=== PATIENT | male | born 1955 | race Caucasian/White ===

== ENCOUNTER 2024-04-08 12:18 | Emergency (ER) | payer MEDICARE ==
[~2024-04-08] VITALS: Ht 188 cm; Wt 104.3 kg
[2024-04-08] MEDS: HYDROcodone/APAP 5/325 1 TAB TABLET PO STA (13:32)
--- NOTE | 2024-04-08 13:51 | ERN ---
ED Note History of Present Illness Stated Complaint: SWOLLEN LEFT ANKLE Chief Complaint: Ankle Problem Time Seen by MD: 12:20 Time Seen by Midlevel: 12:25 Dictation: 68-year-old male coming in with complaints of left ankle pain. Patient states on Saturday he rolled it in his having pain and swelling since then. Patient is came in ambulating on crutches states he has also has been using ice for swelling and his family members urgency come get it evaluated. Allergies: Coded Allergies: Penicillins (Unverified Allergy, Unknown, RASH, 04/08/24) Past Medical History Past Medical History: High Cholesterol, Hypertension Surgical History: None Review of System Dictation Constitutional: Negative for fever,chills, and weight loss Eyes: Negative for injury, pain,redness, and discharge ENT: Negative for injury,pain or swelling Cardiovascular: Negative for chest pain, palpitations, and edema Respiratory: Negative for shortness of breath, cough, and wheezing, Abdomen/GI: Negative for abdominal pain, nausea, vomiting, diarrhea, and constipation Back: Negative for injury and pain : Negative for injury, bleeding and discharge MS/Extremity: complaining of left ankle pain Skin: Negative for rash, and discoloration Neuro: Negative for headache, weakness, numbness, tingling, and seizure Psych: Negative for suicide ideation, homicidal ideation, and hallucinations Review of Systems: was completed Initial Vital Sign VS Vital Signs Date Time Temp Pulse Resp B/P (MAP) Pulse Ox O2 Delivery O2 Flow Rate FiO2 04/08/24 12:24 97.0 86 20 158/88 98 Room Air 04/08/24 14:10 0 21 Physical Exam Dictation General: awake, alert, NAD Head/Face: Normocephalic, atraumatic Eyes: PERRL, EOMI, vision at baseline ENT: oral cavity clear, TMs clear, no signs of infection Neck: Trachea midline, supple, no nuchal rigidity Cardiovascular: RRR, normal S1/S2, No MRGs, no JVD Respiratory: CTAB, no respiratory distress, No rales or wheezes Abdomen: Soft, non-tender, non-distended, normal bowel sounds, no guarding or rebound. Skin: Warm, dry, normal turgor, no rash MS/Extremity: Pulses equal, no cyanosis, neurovascular intact, limited ROM to left ankle due to pain. There is swelling noted and bruising. Pedal pulses intact. Capillary seconds. Denies any numbness or tingling. Neuro: COAx4, GCS 15, strength 5/5, CN 2-12 intact, normal cerebellar exam, normal gait, Psych: Normal behavior, mood, and affect normal ED Course ED Course Orders Procedure Category Date Status Time Ankle 2vws Lt RAD 04/08/24 Resulted 12:30 Hydrocodone/Apap PHA 04/08/24 Complete 5/325 ([place] 5/325mg) 12:30 Posterior Ankle Splint [email or web address] 04/08/24 Complete 14:04 Crutches W/Training CPOE 04/08/24 Transmitted (Er) 14:04 Current Medications Medications (Trade) Dose Ordered Sig/Marie Route PRN Reason Start Time Stop Time Status Last Admin Dose Admin Acetaminophen/ Hydrocodone Bitart (NORco 5/325MG) 1 tab ONCE STAT PO 04/08/24 12:30 04/08/24 12:31 DC 04/08/24 13:32 Vital Signs Date Time Temp Pulse Resp B/P (MAP) Pulse Ox O2 Delivery O2 Flow Rate FiO2 04/08/24 14:10 97.9 86 20 147/85 98 Room Air* 0 21 04/08/24 12:24 97.0 86 20 158/88 98 Room Air Medical Decision Making MDM MDM: 68-year-old male coming in with complaints of left ankle pain. Patient states on Saturday he rolled it in his having pain and swelling since then. Patient is came in ambulating on crutches states he has also has been using ice for swelling and his family members urged him come get it evaluated. X-ray shows a fibula fracture, interpreted by me. Patient is placed in a short posterior splint in educated to use crutches until seen by orthopedic surgeon. Educated patient to continue to elevate and ice as needed. Take Tylenol or Motrin [id number]. Patient verbalized understanding, answered all questions. Differential diagnosis: Tib-fib fracture, ankle sprain, ankle contusion Rationale: Tests considered and ordered secondary to shared decision making include: Previous outside records reviewed: Old ER visits. Risk of complication and/or morbidity or mortality of patient management: None Medications-Per medication reconciliation Need for hospitalization: Patient does not meet criteria for hospitalization. Need for emergency major/minor surgery: No There are no social concerns with this patient. Prescription drug management Prescriptions will include symptomatic care Patient's prior external medical records from other ER visits were reviewed by me as indicated. Prior testing and results from previous visits were reviewed. Prior tests were taken into account with medical decision making and resource utilization, independent historian/historians were used to obtain complete medical history. I independently interpreted the test that were performed, results were reviewed by me and considered findings on radiology if ordered. Medical management and examination interpretation discussions were had by me with other qualified healthcare professionals as indicated for the patient's care. DX & DISP Disposition: Discharge Departure Impression: Primary Impression: Fibula fracture Condition: Stable Additional Instructions: Continue using crutches, do not bear weight on that ankle. Go see the orthopedic surgeon in 1-2 days. You can take [id number] Tylenol, Motrin for pain control. Elevate and ice as needed. Return to the emergency room if you start to develop any numbness or tingling to the extremity Referrals: SELF,REFERRAL (PCP) JAZMYN IZQUIERDO MD Time of Disposition: 14:07 I have reviewed the case, and I agree with, Diagnosis and Plan GIANNA PINEDA NP Apr 08, 2024 13:51 SHEA FUENTES DO Apr 10, 2024 07:26
--- NOTE | 2024-04-08 14:03 | HMCIMG ---
ANKLE 2VWS LT REASON: pain/trauma TECHNIQUE: 3 views were obtained. FINDINGS: There is a spiral fracture of the distal fibular metaphysis, nondisplaced. There is overlying soft tissue swelling. Ankle mortise appears preserved. Tibia and anterior talus appears intact. There is a heel spur, the calcaneus is otherwise unremarkable. IMPRESSION: 1. Spiral fracture of the left distal fibular metaphysis with associated soft tissue swelling.
[2024-04-08 14:10] VITALS: BP 147/85; PULSE 86; RESP 20; TEMP 97.9; O2SAT 98
== END 2024-04-08 14:32 | disposition home or self-care (01) ==
LOC: EDH 12:18
DX: S82.442A Displaced spiral fracture of shaft of left fibula, initial encounter for closed fracture (principal); E78.00 Pure hypercholesterolemia, unspecified; I10 Essential (primary) hypertension; Z88.0 Allergy status to penicillin; X58.XXXA Exposure to other specified factors, initial encounter; Y93.89 Activity, other specified; Y92.89 Other specified places as the place of occurrence of the external cause; Y99.8 Other external cause status
CPT/HCPCS: 73600; 99283

== ENCOUNTER 2024-04-22 13:37 | Emergency (ER) | payer MEDICARE ==
[~2024-04-22] VITALS: Ht 188 cm; Wt 104.3 kg
--- NOTE | 2024-04-22 14:56 | ERN ---
ED Note History of Present Illness Stated Complaint: LT ANKLE PAIN Chief Complaint: Ankle Problem Time Seen by MD: 13:42 Time Seen by Midlevel: 13:45 Dictation: 68-YEAR-OLD MALE COMING IN FOR LEFT ANKLE PAIN. PATIENT STATES HE WAS HERE COUPLE WEEKS AGO WAS DIAGNOSED WITH A LEFT ANKLE FRACTURE, HAS NOT BEEN ABLE TO SEE AN ORTHOPEDIC SO HE IS SENT HIS MEDICAL RECORDS SO HIS PCP BACK HOME, STATES THAT THE HIS PCP RECOMMENDED A FOLLOW UP X-RAY TO SEE IF THE FRACTURE IS HEALING CORRECTLY. PATIENT STATES HE HAS BEEN WEARING A BOOT ON HIS LEFT ANKLE SINCE HE WAS DISCHARGED FROM THIS FACILITY. DENIES ANY RECENT TRAUMAS. AND STATES HE IS ACTUALLY FEELING BETTER EVERY DAY. Allergies: Coded Allergies: Penicillins (Unverified Allergy, Unknown, RASH, 04/08/24) Past Medical History Past Medical History: High Cholesterol, Hypertension Surgical History: None Review of System Dictation CONSTITUTIONAL: NEGATIVE FOR FEVER,CHILLS, AND WEIGHT LOSS EYES: NEGATIVE FOR INJURY, PAIN,REDNESS, AND DISCHARGE ENT: NEGATIVE FOR INJURY,PAIN OR SWELLING CARDIOVASCULAR: NEGATIVE FOR CHEST PAIN, PALPITATIONS, AND EDEMA RESPIRATORY: NEGATIVE FOR SHORTNESS OF BREATH, COUGH, AND WHEEZING, ABDOMEN/GI: NEGATIVE FOR ABDOMINAL PAIN, NAUSEA, VOMITING, DIARRHEA, AND CONSTIPATION BACK: NEGATIVE FOR INJURY AND PAIN : NEGATIVE FOR INJURY, BLEEDING AND DISCHARGE MS/EXTREMITY: NEGATIVE FOR INJURY AND DEFORMITY SKIN: NEGATIVE FOR RASH, AND DISCOLORATION NEURO: NEGATIVE FOR HEADACHE, WEAKNESS, NUMBNESS, TINGLING, AND SEIZURE PSYCH: NEGATIVE FOR SUICIDE IDEATION, HOMICIDAL IDEATION, AND HALLUCINATIONS Review of Systems: was completed Initial Vital Sign VS Vital Signs Date Time Temp Pulse Resp B/P (MAP) Pulse Ox O2 Delivery O2 Flow Rate FiO2 04/22/24 13:38 98.8 86 20 158/98 96 Room Air Physical Exam Dictation GENERAL: AWAKE, ALERT, NAD HEAD/FACE: NORMOCEPHALIC, ATRAUMATIC EYES: PERRL, EOMI, VISION AT BASELINE ENT: ORAL CAVITY CLEAR, TMS CLEAR, NO SIGNS OF INFECTION NECK: TRACHEA MIDLINE, SUPPLE, NO NUCHAL RIGIDITY CARDIOVASCULAR: RRR, NORMAL S1/S2, NO MRGS, NO JVD RESPIRATORY: CTAB, NO RESPIRATORY DISTRESS, NO RALES OR WHEEZES ABDOMEN: SOFT, NON-TENDER, NON-DISTENDED, NORMAL BOWEL SOUNDS, NO GUARDING OR REBOUND. SKIN: WARM, DRY, NORMAL TURGOR, NO RASH MS/EXTREMITY: PULSES EQUAL, NO CYANOSIS, NEUROVASCULAR INTACT, FROM NEURO: COAX4, GCS 15, STRENGTH 5/5, CN 2-12 INTACT, NORMAL CEREBELLAR EXAM, NORMAL GAIT, PSYCH: NORMAL BEHAVIOR, MOOD, AND AFFECT NORMAL Results (Laboratory/Radiology) Labs Reviewed?: Yes ED Course ED Course Orders Procedure Category Date Status Time Ankle 2vws Lt RAD 04/22/24 Taken 13:44 Vital Signs Date Time Temp Pulse Resp B/P (MAP) Pulse Ox O2 Delivery O2 Flow Rate FiO2 04/22/24 13:38 98.8 86 20 158/98 96 Room Air Medical Decision Making MDM MDM: 68-YEAR-OLD MALE COMING IN FOR LEFT ANKLE PAIN. PATIENT STATES HE WAS HERE COUPLE WEEKS AGO WAS DIAGNOSED WITH A LEFT ANKLE FRACTURE, HAS NOT BEEN ABLE TO SEE AN ORTHOPEDIC SO HE IS SENT HIS MEDICAL RECORDS SO HIS PCP BACK HOME, STATES THAT THE HIS PCP RECOMMENDED A FOLLOW UP X-RAY TO SEE IF THE FRACTURE IS HEALING CORRECTLY. PATIENT STATES HE HAS BEEN WEARING A BOOT ON HIS LEFT ANKLE SINCE HE WAS DISCHARGED FROM THIS FACILITY. DENIES ANY RECENT TRAUMAS. AND STATES HE IS ACTUALLY FEELING BETTER EVERY DAY. NEW X-RAY SHOWS NO ACUTE FINDINGS, FRACTURES STILL IN PLACE, NO DISLOCATION OR DISPLACEMENT. INTERPRETED BY MYSELF AND ER MD. DIFFERENTIAL DIAGNOSIS: LEFT ANKLE FRACTURE, DISLOCATION OF THE LEFT ANKLE F RACTURE. RATIONALE: TESTS CONSIDERED AND ORDERED SECONDARY TO SHARED DECISION MAKING INCLUDE: PREVIOUS OUTSIDE RECORDS REVIEWED: OLD ER VISITS. RISK OF COMPLICATION AND/OR MORBIDITY OR MORTALITY OF PATIENT MANAGEMENT: NONE MEDICATIONS-PER MEDICATION RECONCILIATION NEED FOR HOSPITALIZATION: PATIENT DOES NOT MEET CRITERIA FOR HOSPITALIZATION. NEED FOR EMERGENCY MAJOR/MINOR SURGERY: NO THERE ARE NO SOCIAL CONCERNS WITH THIS PATIENT. PRESCRIPTION DRUG MANAGEMENT PRESCRIPTIONS WILL INCLUDE SYMPTOMATIC CARE PATIENT'S PRIOR EXTERNAL MEDICAL RECORDS FROM OTHER ER VISITS WERE REVIEWED BY ME INDICATED. PRIOR TESTING AND RESULTS FROM PREVIOUS VISITS WERE REVIEWED. PRIOR TESTS WERE TAKEN INTO ACCOUNT WITH MEDICAL DECISION MAKING AND RESOURCE UTILIZATION, INDEPENDENT HISTORIAN/HISTORIANS WERE USED TO OBTAIN COMPLETE MEDICAL HISTORY. I INDEPENDENTLY INTERPRETED THE TEST THAT WERE PERFORMED, RESULTS WERE REVIEWED BY ME AND CONSIDERED FINDINGS ON RADIOLOGY IF ORDERED. MEDICAL MANAGEMENT AND EXAMINATION INTERPRETATION DISCUSSIONS WERE HAD BY ME WITH OTHER QUALIFIED HEALTHCARE PROFESSIONALS INDICATED FOR THE PATIENT'S CARE. DX & DISP Disposition: Discharge Departure Impression: Primary Impression: Fibula fracture Condition: Stable Additional Instructions: CONTINUE WEARING YOUR BOOT AND USING YOUR CRUTCHES. I GAVE YOU ANOTHER NUMBER FOR ORTHOPEDIC OUT IT KNOW IF YOU HAVE TRIED THIS ONE. PLEASE RETURN TO THE ER NEEDED. Referrals: SELF,REFERRAL (PCP) AUTUMN ODOM MD Time of Disposition: 14:55 I have reviewed the case, and I agree with, Diagnosis and Plan GIANNA PINEDA NP Apr 22, 2024 14:56
--- NOTE | 2024-04-22 15:45 | HMCIMG ---
ANKLE 2VWS LT HISTORY: Left ankle pain COMPARISON: None TECHNIQUE: 2 images of left ankle were obtained. FINDINGS: Oblique fracture is seen involving the distal fibula. There is calcaneal spur. Soft tissue swelling is seen. No gross dislocation is seen. Degenerative changes are seen. IMPRESSION: 1. Findings as described above.
[2024-04-22 15:50] VITALS: BP 149/91; PULSE 84; RESP 20; TEMP 98.7; O2SAT 97
== END 2024-04-22 16:04 | disposition home or self-care (01) ==
LOC: EDH 13:37
DX: S82.432A Displaced oblique fracture of shaft of left fibula, initial encounter for closed fracture (principal); E78.00 Pure hypercholesterolemia, unspecified; I10 Essential (primary) hypertension; Z88.0 Allergy status to penicillin; X58.XXXA Exposure to other specified factors, initial encounter; Y93.89 Activity, other specified; Y92.89 Other specified places as the place of occurrence of the external cause; Y99.8 Other external cause status
CPT/HCPCS: 73600; 99283